=== PATIENT | male | born 1960 | race Caucasian/White ===

== ENCOUNTER 2016-10-15 06:17 | Day surgery (SDC) | payer OTHER ==
[~2016-10-15 06:17] MED LIST: ACTOS30 PO; ALEVE220 MG PO; AMARYL2 PO; AMARYL4 PO; CADUET5 MG/20 MG PO; CIALIS20 MG PO; DSS PO; FLOMAX4 PO; FLONASE NAS; FOLIC ACID800 MCG PO; FOLIC PO; GLUCOPHAGE1000 MG PO; GLUCPH PO; GLUCPH8 PO; GLYXAMBI 25 MG1 EACH PO; HEMOCYTE324 MG PO; HUMIRA PEN SC; LOTE40 PO; LOTREL1 CA2 PO; LYRICA50 PO; MOBIC15 MG PO; MTX2.5 PO; MULTI-VIT HP PO; NORCO1 TA1 PO; NORV10 PO; OXYCON10 PO; P10 PO; PCET PO; SULFAZINE EC500 MG PO; TREXALL10 MG PO
== END 2016-10-15 14:10 | disposition home or self-care (01) ==
LOC: SDC 06:17
PROVIDERS: Orthopaedic Surgery
PROC: 3E0R3BZ Introduction of Anesthetic Agent into Spinal Canal, Percutaneous Approach (ICD-10-PCS; 2016-10-15)
PROC: 3E0R33Z Introduction of Anti-inflammatory into Spinal Canal, Percutaneous Approach (ICD-10-PCS; principal; 2016-10-15 09:45)
DX: M54.16 Radiculopathy, lumbar region (principal); H91.90 Unspecified hearing loss, unspecified ear; G62.9 Polyneuropathy, unspecified; F17.210 Nicotine dependence, cigarettes, uncomplicated; I10 Essential (primary) hypertension; M06.9 Rheumatoid arthritis, unspecified; Z98.1 Arthrodesis status; Z86.14 Personal history of Methicillin resistant Staphylococcus aureus infection; Z96.659 Presence of unspecified artificial knee joint; Z90.49 Acquired absence of other specified parts of digestive tract; E11.9 Type 2 diabetes mellitus without complications; Z98.890 Other specified postprocedural states
CPT/HCPCS: 82962; J1040; J2250; J3010; Q9967

== ENCOUNTER 2016-10-29 05:35 | Day surgery (SDC) | payer OTHER | END 2016-10-29 09:46 | disposition home or self-care (01) | LOC: SDC 05:35 | PROVIDERS: Orthopaedic Surgery | PROC: 3E0S3BZ Introduction of Anesthetic Agent into Epidural Space, Percutaneous Approach (ICD-10-PCS; 2016-10-29) | PROC: 3E0S33Z Introduction of Anti-inflammatory into Epidural Space, Percutaneous Approach (ICD-10-PCS; principal; 2016-10-29 07:30) | DX: M54.16 Radiculopathy, lumbar region (principal); E11.9 Type 2 diabetes mellitus without complications; I10 Essential (primary) hypertension; M06.9 Rheumatoid arthritis, unspecified; Z79.899 Other long term (current) drug therapy; Z98.1 Arthrodesis status; Z90.49 Acquired absence of other specified parts of digestive tract; Z96.651 Presence of right artificial knee joint; Z98.890 Other specified postprocedural states | CPT/HCPCS: 82962; J1040; J2250; J3010; Q9967 ==